=== PATIENT | female | born 1940 | race Caucasian/White ===

== ENCOUNTER 2023-08-02 09:17 | Emergency (ER) | payer MEDICARE ==
[2023-08-02 09:50] LABS: BASOPHILS ABSOLUTE AUTO 0.1 K/mm3 (0.0-0.2); EOSINOPHILS ABSOLUTE AUTO 0.1 K/mm3 (0.0-0.4); EOSINOPHILS PERCENT AUTO 1.7 % (0.0-6.0); HEMATOCRIT 38.9 % (37.0-47.0); IMMATURE GRAN ABSOLUTE AUTO 0.01 K/mm3 (0.00-0.05); IMMATURE GRAN PERCENT AUTO 0.1 % (0.0-0.4); LYMPHOCYTES ABSOLUTE AUTO 2.2 K/mm3 (1.0-4.8); LYMPHOCYTES PERCENT AUTO 26.5 % (24.0-44.0); MEAN CORPUSCULAR HEMOGLOBIN 33.3 pg (28.0-32.0); MEAN CORPUSCULAR HGB CONC 33.4 g/dl (32.0-36.0); MEAN CORPUSCULAR VOLUME 99.7 fl (83.0-99.0); MEAN PLATELET VOLUME 9.8 fl (9.4-12.3); MONOCYTES ABSOLUTE AUTO 0.8 K/mm3 (0.0-0.8); MONOCYTES PERCENT AUTO 9.6 % (0.0-8.0); NEUTROPHILS PERCENT AUTO 61.1 % (41.0-71.0); PLATELET COUNT,PLT 295 K/mm3 (150-400); WHITE BLOOD CELL COUNT,WBC 8.25 K/mm3 (3.9-11.3)
[2023-08-02] MEDS ORDERED: Iopamidol 755 Mg/ML 100 ML Bottle IVPUSH ONE (09:50)
[2023-08-02] MEDS ORDERED: Sodium Chloride 0.9% 10 ML Syringe FLUSH PRN (09:50)
[2023-08-02 09:59] LABS: INR 0.97; PROTHROMBIN TIME 10.4 SECONDS (9.7-12.0)
[2023-08-02] MEDS ORDERED: Sodium Chloride 0.9% 45 ML IV SCH (10:00)
[2023-08-02 10:05] LABS: ALBUMIN 3.7 g/dl (3.4-5.0); BILIRUBIN TOTAL 0.5 mg/dL (0.2-1.0); BUN/CREATININE RATIO 17.1 (14-18); CALCIUM 9.7 mg/dL (8.5-10.1); CREATININE 1.4 mg/dL (0.55-1.02); EST CRCL DRUG DOSING (CG) 27.21 mL/min; PROTEIN TOTAL,TP 7.3 g/dl (6.4-8.2)
[2023-08-02 11:41] LABS: APPEARANCE,URINE CLEAR (Clear); BILIRUBIN,URINE NEGATIVE (Negative); COLOR,URINE YELLOW (Yellow); GLUCOSE,URINE NEGATIVE (Negative); KETONES,URINE NEGATIVE (Negative); LEUKOCYTE ESTERASE,URINE NEGATIVE (Negative); NITRITE,URINE NEGATIVE (Negative); OCCULT BLOOD,URINE TRACE-LYSED (Negative); PROTEIN,URINE NEGATIVE (Negative); UROBILINOGEN,URINE 0.2 (0.2-1.0)
[2023-08-02 12:10] LABS: BACTERIA,URINE MODERATE /hpf (FEW); HYALINE CASTS,URINE 0-5 /lpf (0-5); MUCUS,URINE NOT SEEN /hpf (FEW); RBC,URINE 0-5 /hpf (0-5); SQUAMOUS EPITHELIAL CELLS,UR 0-5 /hpf (0-5)
[2023-08-02 12:44] VITALS: BP 152/63; PULSE 59
== END 2023-08-02 13:50 | disposition left against medical advice (07) ==
LOC: JD.ED 09:17
DX: R41.82 Altered mental status, unspecified (principal); Z88.8 Allergy status to other drugs, medicaments and biological substances; Z79.82 Long term (current) use of aspirin
CPT/HCPCS: 36415; 70450; 70496; 70498; 80053; 81001; 82947; 84484; 85025; 85610; 93005; 99285; J3490; Q9967; 93010; 99284

== ENCOUNTER 2023-08-17 11:15 | Emergency (ER) | payer MEDICARE ==
[2023-08-17] MEDS ORDERED: Sodium Chloride 0.9% 10 ML Syringe FLUSH PRN (11:25)
[2023-08-17] MEDS ORDERED: methylPREDNISolone Sodium Succinate 125 MG/2 ML SDV IVPUSH ONE (11:25)
[2023-08-17] MEDS ORDERED: diphenhydrAMINE 50 MG/ML SDV IVPUSH ONE (11:25)
[2023-08-17] MEDS ORDERED: Famotidine 20 MG/2 ML SDV IVPUSH ONE (11:26)
[2023-08-17 15:11] VITALS: BP 157/83; PULSE 54
== END 2023-08-17 14:56 | disposition home or self-care (01) ==
LOC: JD.ED 11:19
DX: T78.3XXA Angioneurotic edema, initial encounter (principal); M19.90 Unspecified osteoarthritis, unspecified site; Z79.82 Long term (current) use of aspirin; Z88.6 Allergy status to analgesic agent
CPT/HCPCS: 96374; 96375; 99283; J1200; J2930; J3490; 99284

== ENCOUNTER 2023-08-18 14:12 | Emergency (ER) | payer MEDICARE ==
[2023-08-18 17:08] VITALS: BP 155/83; PULSE 56
== END 2023-08-18 16:55 | disposition home or self-care (01) ==
LOC: JD.ED 14:12
DX: T78.3XXA Angioneurotic edema, initial encounter (principal); Z79.82 Long term (current) use of aspirin; Z79.899 Other long term (current) drug therapy; Z88.8 Allergy status to other drugs, medicaments and biological substances
CPT/HCPCS: 70551; 70551-26; 99283; 99285

== ENCOUNTER 2023-09-27 15:26 | Emergency (ER) | payer MEDICARE ==
[2023-09-27] MEDS ORDERED: diphenhydrAMINE 50 MG/ML SDV IVPUSH ONE (17:44)
[2023-09-27] MEDS ORDERED: Famotidine 20 MG/2 ML SDV IVPUSH ONE (17:44)
[2023-09-27 20:24] VITALS: BP 160/64; PULSE 67
== END 2023-09-27 20:00 | disposition home or self-care (01) ==
LOC: JD.ED 15:26
DX: T78.3XXA Angioneurotic edema, initial encounter (principal); M19.90 Unspecified osteoarthritis, unspecified site; Z79.82 Long term (current) use of aspirin; Z90.49 Acquired absence of other specified parts of digestive tract; Z90.710 Acquired absence of both cervix and uterus; Z88.6 Allergy status to analgesic agent
CPT/HCPCS: 96365; 96375; 99283; J0598; J1200; J3490